=== PATIENT | female | born 1995 | race Hispanic/Latino ===

== ENCOUNTER 2017-03-31 23:59 | Emergency (ER) | payer BC, OTHER ==
[2017-04-01] MEDS ORDERED: Ibuprofen 800 MG TAB ONE (01:04)
--- NOTE | 2017-04-01 07:42 | RAD ---
LEFT MIDDLE FINGER 3 VIEWS: HISTORY: Left middle finger pain. FINDINGS/IMPRESSION: No acute fracture or dislocation is identified. POS: [facility]
== END 2017-04-01 01:24 | disposition home or self-care (01) ==
LOC: ERS 23:59
DX: M79.645 Pain in left finger(s) (principal)

== ENCOUNTER 2021-06-02 16:01 | Outpatient (CLI) | payer BC | END 2021-06-02 16:02 | disposition home or self-care (01) | LOC: BICULT 16:01 | PROVIDERS: ATTEND Family Medicine | DX: N63.12 Unspecified lump in the right breast, upper inner quadrant (principal) ==